=== PATIENT | female | born 1950 | race African-American/Black ===

== ENCOUNTER 2020-07-01 10:20 | Outpatient (CLI) | payer MEDICARE, OTHER ==
[~2020-07-01] VITALS: Ht 160 cm; Wt 85.3 kg
[2020-07-01 10:41] VITALS: BP 138/70
[2020-07-01] MEDS ORDERED: METHOTREXATE2.5 MG PO (10:47)
[2020-07-01] MEDS ORDERED: JANUVIA100 MG ORAL (10:47)
[2020-07-01] MEDS ORDERED: FELODIPINE ER5 MG PO (10:47)
[2020-07-01] MEDS ORDERED: FOLIC ACID1 MG ORAL (10:47)
[2020-07-01] MEDS ORDERED: METFORMIN HCL500 M1 ORAL (10:47)
[2020-07-01] MEDS ORDERED: SULINDAC200 MG PO (10:47)
[2020-07-01] MEDS ORDERED: BYSTOLIC10 MG ORAL (10:47)
--- NOTE | 2020-07-01 11:44 | Consultation ---
DATE OF CONSULTATION: 07/01/2020 CHIEF COMPLAINT: Chronic GERD, Anglin's esophagus, chronic constipation. PAST MEDICAL HISTORY: 1. Hiatal hernia. 2. GERD. 3. Anglin's esophagus. 4. Hypertension. 5. Diabetes. 6. Anemia. 7. Hemorrhoids. 8. Rheumatoid arthritis. PAST SURGICAL HISTORY: Hysterectomy, sinus surgery. MEDICATIONS: Please see medication reconciliation list. FAMILY HISTORY: Noncontributory. SOCIAL HISTORY: The patient drinks socially. Denies any tobacco or IV drug abuse. ALLERGIES: No known allergies. REVIEW OF SYSTEMS: Positive for abdominal pain, constipation, GERD. PHYSICAL EXAMINATION: VITAL SIGNS: Temperature 97.7, blood pressure 138/70, pulse 78, respirations 20. HEENT: Normocephalic and atraumatic. Sclerae anicteric. NECK: Supple. No evidence of obvious lymphadenopathy. CARDIOVASCULAR: Rhythm rate and rhythm. Plus S1 and S2. LUNGS: Decreased breath sounds bilaterally based on the supine exam. ABDOMEN: Soft, nontender. No rebound. No guarding. No peritoneal sign. EXTREMITIES: No cyanosis. No clubbing. No edema. ASSESSMENT AND PLAN: The patient is a 69-year-old female. 1. History of GERD, hiatal hernia, Anglin's esophagus. Last endoscopy in 2012. Currently only on Pepcid. Plan to do endoscopy for evaluation and patient needs to be on PPI, after that. In terms of constipation, the patient is currently taking Colace and it is working for her. We will continue same thing 2. Screening colonoscopy, last colonoscopy over 7 years ago. We will plan to do colonoscopy with endoscopy. Td Horner M.D. DR: Sheila JOB#: [id number] CC:
== END 2020-07-01 12:20 | disposition home or self-care (01) ==
LOC: PAN 10:20
DX: K21.9 Gastro-esophageal reflux disease without esophagitis (principal); K22.70 Barrett's esophagus without dysplasia; K59.09 Other constipation; I10 Essential (primary) hypertension; E11.9 Type 2 diabetes mellitus without complications; M06.9 Rheumatoid arthritis, unspecified; Z90.710 Acquired absence of both cervix and uterus
CPT/HCPCS: G0463

== ENCOUNTER 2020-08-28 13:08 | Outpatient (CLI) | payer MEDICARE, OTHER ==
[~2020-08-28 13:08] MED LIST: BYSTOLIC10 MG ORAL; FELODIPINE ER5 MG PO; FOLIC ACID1 MG ORAL; JANUVIA100 MG ORAL; METFORMIN HCL500 M1 ORAL; METHOTREXATE2.5 MG PO; SULINDAC200 MG PO
[2020-08-28 13:27] VITALS: BP 126/64
--- NOTE | 2020-08-28 13:49 | General Progress Note ---
Subjective ROS Limited/Unobtainable: Yes Allergies: Coded Allergies: No Known Allergies (Unverified , 07/01/20) Objective Last 24 Hour Vital Signs Date Time Temp Pulse Resp B/P (MAP) Pulse Ox O2 Delivery O2 Flow Rate FiO2 08/28/20 13:27 97.6 76 16 126/64 98 General Appearance: alert EENT: normal ENT inspection Neck: supple Cardiovascular: normal rate Respiratory/Chest: decreased breath sounds Abdomen: normal bowel sounds, non tender, soft Extremities: non-tender Assessment/Plan Assessment/Plan: GERD gastritis diverticulosis reflux s/p EGd and colonoscopy prn prpcid repeat colon in 5 years Td Horner MD Aug 28, 2020 13:49
== END 2020-08-28 15:08 | disposition home or self-care (01) ==
LOC: PAN 13:08
DX: K21.9 Gastro-esophageal reflux disease without esophagitis (principal); K29.70 Gastritis, unspecified, without bleeding; K57.90 Diverticulosis of intestine, part unspecified, without perforation or abscess without bleeding
CPT/HCPCS: 99212